=== PATIENT | female | born 1960 ===

== ENCOUNTER → 2018-08-08 | Outpatient (CLI) | payer OTHER | LOC: BMCIMAGING 14:06 | PROVIDERS: ATTEND Family Medicine | DX: Z13.820 Encounter for screening for osteoporosis (principal); M85.89 Other specified disorders of bone density and structure, multiple sites ==

== ENCOUNTER 2019-04-10 13:03 | Observation (INO) | payer OTHER | END 2019-04-11 12:32 | disposition home or self-care (01) | LOC: F3N 18:22 ==